=== PATIENT | male | born 1970 | race African-American/Black ===

== ENCOUNTER 2018-02-05 17:18 | Emergency (ER) | payer OTHER ==
[~2018-02-05] VITALS: Ht 185.4 cm; Wt 204.6 kg
[~2018-02-05 17:18] MED LIST: GLUCOPHAGE XR500 MG PO; HYDRALAZINE 2525 MG PO; IMDUR 60 MG TAB60 M1 PO; LOPRESSOR100 M1 PO; METOPROLOL SUCC50 MG PO; NORCO 5-325 TA1 EACH PO; PRINIVIL20 MG PO; ROBAXIN 750 MG750 M1 PO; TOPROL XL100 MG PO; ZESTRIL10 MG PO
[2018-02-05 18:36] LABS: URINE BILIRUBIN NEGATIVE (Negative); URINE BLOOD NEGATIVE (Negative); URINE CLARITY CLEAR; URINE COLOR YELLOW; URINE GLUCOSE-RANDOM 2+ (Negative); URINE KETONES NEGATIVE (Negative); URINE LEUKOCYTES NEGATIVE (Negative); URINE NITRITE NEGATIVE (Negative); URINE PROTEIN TRACE (Negative); URINE SPECIFIC GRAVITY >= 1.030 (1.005-1.030); URINE UROBILINOGEN 0.2 E.U./dl (0.2-1.0)
[2018-02-05] MEDS ORDERED: NORCO 5-325 TA1 EACH PO (19:21)
[2018-02-05] MEDS ORDERED: FLEXERIL PO (19:21)
[2018-02-05] MEDS ORDERED: IBUPROFEN 800800 M1 PO (19:21)
[2018-02-05 19:35] VITALS: BP 117/86
== END 2018-02-05 19:43 | disposition left against medical advice (07) ==
LOC: M.ERS 17:18
PROVIDERS: Personal Emergency Response Attendant
DX: M54.6 Pain in thoracic spine (principal); I10 Essential (primary) hypertension; I48.91 Unspecified atrial fibrillation; E11.9 Type 2 diabetes mellitus without complications; Z91.041 Radiographic dye allergy status; Z88.0 Allergy status to penicillin

== ENCOUNTER 2019-01-10 16:57 | Inpatient (IN) | payer OTHER ==
[~2019-01-10] VITALS: Ht 185.4 cm; Wt 207.7 kg
--- NOTE | ~2019-01-10 | CON ---
[address] [address] CONSULTATION Name: RENAY CASE Room: [address] IN M.R.#: [id number] Admission: 01/10/19 Attend Phys: Wallace Joseph MD Discharge: 01/11/19 Date of : 68 Report #: [id number] THIS REPORT FOR: //name// CC: WALLACE Joseph FAM physician/PCP DATE OF SERVICE: 01/11/2019 BRIEF REVIEW NOTE ATTENDING PHYSICIAN: Wallace Joseph MD HISTORY OF PRESENT ILLNESS: The patient is a 48-year-old male who presented with chest discomfort. He left prior to my ability to evaluate him, but I was able to review his cineangiograms from November of 2017. They were performed at [facility] by Dr. Pitts and revealed no hemodynamically significant coronary stenoses. This was discussed with Dr. Joseph prior to his consideration of subsequent therapeutic options. By: [id number] Jg Holland MD, FACC /nt
[~2019-01-10 16:57] MED LIST changes: +FLEXERIL PO; +IBUPROFEN 800800 M1 PO
[2019-01-10 17:05] VITALS: BP 175/68
[2019-01-10] MEDS ORDERED: HYDRALAZINE 2525 MG PO (17:11)
[2019-01-10] MEDS ORDERED: ATIVAN1 MG PO (17:12)
[2019-01-10] MEDS ORDERED: NEURONTIN 300300 M1 PO (17:12)
[2019-01-10] MEDS ORDERED: TOPROL XL100 MG PO (17:14)
--- NOTE | 2019-01-10 17:25 | NUR ---
ATTEMPTED TO START IV X 2, UNSUCCESSFUL. BLOOD DRAWN VIA LFA IV SITE, THEN IV INFILTRATED. PT REFUSES TO BE STUCK AGAIN. REPORTED TO DR. ROSS & PT'S PRIMARY RN MERCEDES.
[2019-01-10 17:32] LABS: ABSOLUTE EOSINOPHILS 0.2 thou/uL (0.0-0.7); ABSOLUTE LYMPHOCYTES 1.4 thou/uL (0.8-5.3); ABSOLUTE MONOCYTES 0.6 thou/uL (0.0-1.2); BASOPHILS 0.4 %; EOSINOPHILS 2.3 %; HEMOGLOBIN 12.2 gm/dL (14.0-18.0); MCV 84.8 fL (80.0-100.0); MONOCYTES 6.7 %; MPV 9.1 fl. (7.2-11.1); NUCLEATED RBCS 0 /100WBC; PLATELET COUNT* 238 thou/uL (150-400); POLYS 75.6 %; RBC 4.36 mil/uL (4.50-6.00); RDW-CV 16.5 % (10.5-14.5); WBC 9.2 thou/uL (4.0-11.0)
[2019-01-10 17:41] LABS: ANION GAP 9 mmol/L (7-16); BUN 22 mg/dL (7-18); CALCIUM 9.3 mg/dL (8.5-10.1); CHLORIDE 103 mmol/L (98-107); CO2 24 mmol/L (21-32); CREATININE 1.3 mg/dL (0.6-1.3); GLUCOSE 343 mg/dL (70-99); POTASSIUM 4.1 mmol/L (3.5-5.1); SODIUM 136 mmol/L (136-145)
[2019-01-10 17:43] LABS: APTT 19.5 Seconds (25.0-31.3); INR 0.9; PROTIME 9.6 Seconds (9.20-11.50)
[2019-01-10 17:56] LABS: ALBUMIN 3.2 g/dL (3.4-5.0); ALKALINE PHOSPHATASE 93 U/L (46-116); CK-MB MASS 2.2 ng/mL (<0.5-3.6); LIPASE 217 U/L (73-393); MAGNESIUM 1.7 mg/dL (1.8-2.4); NT-PRO BRAIN NAT PEPTIDE 55 pg/mL (<300); SGOT 19 U/L (15-37); SGPT 28 U/L (30-65); TOTAL BILIRUBIN 0.2 mg/dL (<0.1-1.0); TOTAL PROTEIN 7.2 g/dL (6.4-8.2); TROPONIN-I LEVEL <0.06 ng/mL (<0.06)
[2019-01-10 18:21] VITALS: BP 175/68
--- NOTE | 2019-01-10 18:58 | NUR ---
RECEIVED REPORT FROM MERCEDES IN THE ED AND ASSUMED CARE OF PT @ 0069.PT IS A/O X4,VSS,TRACING ST ON THE MONITOR.IV PATENT AND SLAINE LOCKED.PT IS CALM AND COOPERATIVE WITH C/O HEADACHE-MEDICATIONS GIVEN IN ED.SUPPORT DOG IN ROOM WITH PT.PT IS UP AD ANDREW IN ROOM.CALL LIGHT WITHIN REACH.WILL CONTINUE TO MONITOR FOR DURATION OF SHIFT.
[2019-01-10 19:01] VITALS: BP 116/58
[2019-01-10 20:00] VITALS: BP 99/66
[2019-01-10] MEDS ORDERED: PRINIVIL20 M1 PO (20:36)
[2019-01-10] MEDS ORDERED: LANTUS SUBQ (21:01)
[2019-01-10] MEDS ORDERED: NOVOLIN R100 UNIT/3 SUBQ (21:02)
[2019-01-11 03:53] VITALS: BP 100/67
--- NOTE | 2019-01-11 05:33 | NUR ---
ASSUMED PT CARE AT 1915. PT C/O OF CHEST PAIN, 8/10 PRESSURE ON LEFT SIDE WITH RADIATION TO LEFT SIDE NECK AND SHOULDER. UNABLE TO ADMINISTER NITROGLYCERIN D/T SOFT BP'S. PT BECAME ANGRY AND BEGAN THREATENING TO LEAVE AMA. DR. WINSTON NOTIFIED AND NEW ORDERES RECEIVED. CARDIOLOGY CONSULT CALLED IN. PT DENIED RELIEF OF CHEST PAIN AFTER PRN PAIN MEDICATION, DR. MONTES NOTIFIED AND NEW ORDERS RECEIVED. PARTIAL RELIEF AFTER IV MORPHINE. PRN NAUSEA MEDICATION ADMINISTERED WITH PARTIAL RELIEF. HOURLY ROUNDING COMPLETED. CALL LIGHT WITHIN REACH.
[2019-01-11 09:16] VITALS: BP 116/77
[2019-01-11 11:11] VITALS: BP 116/77
--- NOTE | 2019-01-11 11:36 | NUR ---
ASSUMED CARE OF PT AROUND 0730 THIS AM. REFER TO ASSESSMENT. PT DISCUSSED WITH HOSPITALISTS AND CARDIOLOGISTS PLAN OF CARE AND PT'S EKG AND TROPONINS NEGATIVE. PT HAD NEGATIVE CARDIAC CATH LAST YEAR. PT INSTRUCTED TO FOLLOW UP OUTPATIENT WITH CARDIOLOGY. PT STRONGLY ENCOURAGED TO OBTAIN A PCP, AND GIVEN SEVERAL SCRIPTS FOR HOME MEDICATIONS. NO OTHER CONCERNS AT THIS TIME. PT GIVEN DC INSTRUCTIONS AND VERBALIZES UNDERSTANDING. PT PUSHED OUT BY NURSING STAFF AND WHEELCHAIR. PT HAS HIS OWN TRUCK HERE AND REFUSES TO TAKE A CAB HOME AND STATES HE WILL BE FINE TO DRIVE HIMSELF HOME.
--- NOTE | 2019-01-11 17:14 | EKG ---
[place] [address] ELECTROCARDIOGRAM REPORT Name: RENAY CASE Room: [address] IN [facility]#: [id number] Admission: 01/10/19 Attend Phys: Brent Joseph MD Discharge: 01/11/19 Date of : 68 Report #: [id number] THIS REPORT FOR: //name// [facility] ED Test Date: 2019-01-10 Test Time: 17:02:40 Pat Name: RENAY CASE Department: Room: [facility] Gender: M Resident Physician In Radiology: : 1970 Requested By: Huy Ott Order Number: [id number] MD: Valerio Holland Measurements Intervals [place] Rate: 95 P: 7 ND: 204 QRS: -14 QRSD: 103 T: 59 QT: 360 QTc: 453 Interpretive Statements Sinus rhythm Left atrial enlargement Low voltage, precordial leads Baseline wander in lead(s) I,II,aVR,aVF,V1,V3,V4,V5,V6 Compared to ECG 01/30/2016 18:16:10 Atrial abnormality now present Low QRS voltage now present Sinus tachycardia no longer present Electronically Signed On 01-11-2019 17:14:19 CDT by Valerio Holland [email or web address] <ELECTRONICALLY SIGNED> By: Valerio Holland MD, [facility] 01/11/19 1714 01 01 Valerio Holland MD, [facility] /EPI
--- NOTE | 2019-01-11 17:15 | EKG ---
[place] [address] ELECTROCARDIOGRAM REPORT Name: RENAY CASE Room: [address] IN M.R.#: [id number] Admission: 01/10/19 Attend Phys: Brent Joseph MD Discharge: 01/11/19 Date of : 68 Report #: [id number] THIS REPORT FOR: //name// [facility] Test Date: 2019-01-10 Test Time: 20:15:59 Pat Name: RENAY CASE Department: Room: [address] Gender: M Oral And Maxillofacial Surgery: RB : 1970 Requested By: Brent Joseph Order Number: [id number] MD: Valerio Holland Measurements Intervals [place] Rate: 87 P: 43 NC: 215 QRS: -10 QRSD: 82 T: 61 QT: 376 QTc: 453 Interpretive Statements Sinus rhythm Multiple premature complexes, vent & supraven Prolonged NC interval Baseline wander in lead(s) V1 Compared to ECG 01/30/2016 18:16:10 First degree AV block now present Sinus tachycardia no longer present Electronically Signed On 01-11-2019 17:15:24 CDT by Valerio Holland [email or web address] <ELECTRONICALLY SIGNED> By: Valerio Holland MD, FACC 01/11/19 1715 14 14 Valerio Holland MD, FAC /EPI
== END 2019-01-11 11:45 | disposition home or self-care (01) | DRG 313 ==
LOC: M.ERS 16:57 → M.TBA-ER 17:51 → M.2W 18:41
PROVIDERS: Emergency Medicine; ADMIT Internal Medicine
DX: R07.89 Other chest pain (principal); Z68.44 Body mass index [BMI] 60.0-69.9, adult; I25.10 Atherosclerotic heart disease of native coronary artery without angina pectoris; I48.91 Unspecified atrial fibrillation; I10 Essential (primary) hypertension; E11.9 Type 2 diabetes mellitus without complications; E66.01 Morbid (severe) obesity due to excess calories; Z86.718 Personal history of other venous thrombosis and embolism; Z79.01 Long term (current) use of anticoagulants; Z79.899 Other long term (current) drug therapy; I25.2 Old myocardial infarction; Z98.62 Peripheral vascular angioplasty status; Z88.0 Allergy status to penicillin; Z91.041 Radiographic dye allergy status

== ENCOUNTER 2019-09-10 02:41 | Emergency (ER) | payer OTHER ==
[~2019-09-10] VITALS: Ht 185.4 cm; Wt 191.9 kg
[~2019-09-10 02:41] MED LIST changes: +ATIVAN1 MG PO; +LANTUS SUBQ; +NEURONTIN 300300 M1 PO; +NOVOLIN R100 UNIT/3 SUBQ; +PRINIVIL20 M1 PO
[2019-09-10] MEDS ORDERED: HYDRALAZINE 2525 M1 PO (04:13)
[2019-09-10] MEDS ORDERED: LOPRESSOR100 M1 PO (04:13)
[2019-09-10] MEDS ORDERED: PRINIVIL20 M1 PO (04:13)
[2019-09-10 04:46] VITALS: BP 136/77
== END 2019-09-10 04:47 | disposition home or self-care (01) ==
LOC: M.ERS 02:41
DX: I10 Essential (primary) hypertension (principal); I48.91 Unspecified atrial fibrillation; E11.9 Type 2 diabetes mellitus without complications; Z86.718 Personal history of other venous thrombosis and embolism; Z79.4 Long term (current) use of insulin; Z88.0 Allergy status to penicillin; Z88.8 Allergy status to other drugs, medicaments and biological substances

== ENCOUNTER 2019-12-03 10:11 | Emergency (ER) | payer OTHER ==
[~2019-12-03] VITALS: Ht 185.4 cm; Wt 191.9 kg
[~2019-12-03 10:11] MED LIST changes: +HYDRALAZINE 2525 M1 PO
[2019-12-03] MEDS ORDERED: HYDRALAZINE 2525 MG PO (11:32)
[2019-12-03] MEDS ORDERED: TOPROL XL100 MG PO (11:32)
[2019-12-03] MEDS ORDERED: ZESTRIL20 MG PO (11:32)
[2019-12-03 11:57] VITALS: BP 183/92
== END 2019-12-03 11:58 | disposition home or self-care (01) ==
LOC: M.ERS 10:11
DX: I10 Essential (primary) hypertension (principal); I48.91 Unspecified atrial fibrillation; E11.9 Type 2 diabetes mellitus without complications; R51 Headache; Z79.899 Other long term (current) drug therapy; Z88.0 Allergy status to penicillin; Z88.8 Allergy status to other drugs, medicaments and biological substances